=== PATIENT | male | born 1945 | race Caucasian/White ===

== ENCOUNTER 2017-11-17 06:18 | Day surgery (SDC) | payer MEDICARE ==
[~2017-11-17] VITALS: Ht 175.3 cm; Wt 117.5 kg
[2017-11-17] MEDS ORDERED: BACITRACIN OINT 500U/GM, 15 GM ONE (06:49)
[2017-11-17] MEDS ORDERED: EPINEPHRINE TOPICAL SOLN 1 MG/ML, 30ML ONE (06:49)
[2017-11-17] MEDS ORDERED: FLUORESCEIN OPHTHALMIC 1 MG STRIP ONE (06:49)
[2017-11-17] MEDS ORDERED: OXYMETAZOLINE NASAL SPRAY 0.05%, 15ML ONE (06:49)
[2017-11-17] MEDS ORDERED: EPINEPHRINE 1 MG/ML, 1ML ONE (06:50)
[2017-11-17] MEDS ORDERED: LIDOCAINE-MPF 1%, 5ML ONE (06:50)
[2017-11-17] MEDS ORDERED: NO MEDS PER PT (07:13)
[2017-11-17] MEDS ORDERED: LACTATED RINGERS 1,000 ML IV SCH (07:13)
[2017-11-17 07:14] VITALS: BP 172/98
[2017-11-17] MEDS ORDERED: GABAPENTIN 300 MG CAPSULE ONE (07:24)
[2017-11-17] MEDS ORDERED: ACETAMINOPHEN 500 MG TABLET ONE (07:24)
[2017-11-17] MEDS ORDERED: OXYcodone IR 5MG TABLET ONE (07:25)
[2017-11-17] MEDS ORDERED: OXYcodone IR 5MG TABLET PO ONE (07:30)
[2017-11-17] MEDS ORDERED: ACETAMINOPHEN 500 MG TABLET PO ONE (07:30)
[2017-11-17] MEDS ORDERED: GABAPENTIN 300 MG CAPSULE PO ONE (07:30)
[2017-11-17] MEDS ORDERED: MIDAZOLAM 1 MG/ML, 2ML ONE (07:56)
[2017-11-17] MEDS ORDERED: FENTANYL PF 100 MCG/2ML ONE (07:56)
[2017-11-17] MEDS ORDERED: PROPOFOL 10 MG/ML, 20ML ONE ×2 (08:32→08:41)
[2017-11-17] MEDS ORDERED: LIDOCAINE-MPF 2% ,5ML ONE (08:32)
[2017-11-17] MEDS ORDERED: PHENYLEPHRINE 10 MG/ML ONE (08:34)
[2017-11-17] MEDS ORDERED: ROCURONIUM 10MG/ML,5ML ONE (08:41)
[2017-11-17] MEDS ORDERED: hydrALAzine 20 MG/ML, 1ML IV PRN (09:30)
[2017-11-17] MEDS ORDERED: LABETALOL 5MG/ML, 20ML IV PRN (09:30)
[2017-11-17] MEDS ORDERED: MEPERIDINE/PF 25MG/0.5ML IVPush PRN (09:30)
[2017-11-17] MEDS ORDERED: ALBUTEROL SULFATE 2.5 MG/3 ML NPPB PRN (09:30)
[2017-11-17] MEDS ORDERED: PROMETHAZINE 25 MG/ML, 1ML IV PRN (09:30)
[2017-11-17] MEDS ORDERED: morphine SULFATE 10 MG/ML, 1ML IV PRN (09:30)
[2017-11-17] MEDS ORDERED: FENTANYL PF 100 MCG/2ML IV PRN (09:30)
[2017-11-17] MEDS ORDERED: LABETALOL 5MG/ML 40ML VIAL ONE (16:03)
[2017-11-17] MEDS ORDERED: DEXAMETHASONE 4 MG/ML, 1ML ONE (16:03)
[2017-11-17] MEDS ORDERED: CEFAZOLIN 1,000 MG ONE (16:03)
== END 2017-11-17 12:05 | disposition home or self-care (01) ==
LOC: OUT 06:18
PROVIDERS: ATTEND Otolaryngology
DX: J32.2 Chronic ethmoidal sinusitis (principal); J32.0 Chronic maxillary sinusitis; J33.8 Other polyp of sinus; J33.9 Nasal polyp, unspecified; I10 Essential (primary) hypertension; E78.00 Pure hypercholesterolemia, unspecified; Z85.828 Personal history of other malignant neoplasm of skin
CPT/HCPCS: 31253; 31259; 31267; 61782; 88304; 88311; 93005; J0171; J0690; J1100; J2250; J2370; J2704; J3010; J3490; J7120

== ENCOUNTER 2018-09-02 09:02 | Outpatient (CLI) | payer MEDICARE ==
[~2018-09-02 09:02] MED LIST: NO MEDS PER PT
[2018-09-02] MEDS ORDERED: ALLO100T64 PO (09:37)
== END 2018-09-02 23:59 | disposition home or self-care (01) ==
LOC: STAR 09:02
PROVIDERS: ATTEND Orthopaedic Surgery
DX: Z01.818 Encounter for other preprocedural examination (principal); M19.012 Primary osteoarthritis, left shoulder; I45.10 Unspecified right bundle-branch block; I25.2 Old myocardial infarction
CPT/HCPCS: 87081; 93005

== ENCOUNTER 2018-09-09 05:16 | Inpatient (IN) | payer MEDICARE ==
[~2018-09-09] VITALS: Ht 175.3 cm; Wt 120.3 kg
[~2018-09-09 05:16] MED LIST changes: +ALLO100T64 PO
[2018-09-09] MEDS ORDERED: LACTATED RINGERS 1,000 ML IV SCH (06:09)
[2018-09-09] MEDS ORDERED: MIDAZOLAM 1 MG/ML, 2ML ONE (06:14)
[2018-09-09] MEDS ORDERED: FENTANYL PF 100 MCG/2ML ONE ×2 (06:15→09:58)
[2018-09-09] MEDS ORDERED: CLINDAMYCIN 150 MG/ML, 6ML ONE (06:36)
[2018-09-09] MEDS: D5%-0.45% NACL 1,000 ML IV SCH ×2 (06:55→15:46)
[2018-09-09] MEDS ORDERED: morphine SULFATE 10 MG/ML, 1ML IV PRN (07:00)
[2018-09-09] MEDS ORDERED: KETOROLAC 30 MG/1 ML IV SCH ×2 (07:00→11:30)
[2018-09-09] MEDS ORDERED: ACETAMINOPHEN 325 MG TABLET PO PRN ×2 (07:00→07:30)
[2018-09-09] MEDS: HYDROcodone/APAP 5/325 TABLET PO SCH ×3 (07:00→15:47)
[2018-09-09] MEDS ORDERED: ONDANSETRON 2MG/ML, 2ML IV PRN (07:00)
[2018-09-09] MEDS ORDERED: ALLOPURINOL PO SCH (07:00)
[2018-09-09] MEDS ORDERED: MAGNESIUM HYDROXIDE 8%, 30ML UDC PO PRN (07:00)
[2018-09-09] MEDS ORDERED: DIPHENHYDRAMINE 25 MG CAPSULE PO PRN (07:00)
[2018-09-09] MEDS ORDERED: MEPERIDINE/PF 25MG/0.5ML IVPush PRN (07:30)
[2018-09-09] MEDS ORDERED: hydrALAzine 20 MG/ML, 1ML IV PRN (07:30)
[2018-09-09] MEDS ORDERED: OXYcodone 5 MG/5 ML ORAL.SOL UDC PO PRN (07:30)
[2018-09-09] MEDS ORDERED: HYDROmorphone 2 MG/ML, 1ML IVPush PRN (07:30)
[2018-09-09] MEDS ORDERED: ALBUTEROL SULFATE 2.5 MG/3 ML NPPB PRN (07:30)
[2018-09-09] MEDS ORDERED: FENTANYL PF 100 MCG/2ML IV PRN (07:30)
[2018-09-09] MEDS ORDERED: PROMETHAZINE 25 MG/ML, 1ML IV PRN (07:30)
[2018-09-09] MEDS ORDERED: DIAZEPAM 5 MG/ML, 2ML IVPush PRN (07:30)
[2018-09-09] MEDS ORDERED: LABETALOL 5MG/ML, 20ML IV PRN (07:30)
[2018-09-09] MEDS ORDERED: FENTANYL PF 250 MCG/5ML ONE (07:33)
[2018-09-09] MEDS ORDERED: HYDROmorphone 2 MG/ML, 1ML ONE (07:34)
[2018-09-09] MEDS ORDERED: SUGAMMADEX 200 MG/2 ML IVPush ONE (08:29)
[2018-09-09] MEDS ORDERED: DOCUSATE 100 MG CAPSULE PO SCH (09:00)
[2018-09-09] MEDS ORDERED: OXYcodone 5 MG/5 ML ORAL.SOL UDC ONE (09:58)
[2018-09-09] MEDS ORDERED: KETOROLAC 30 MG/1 ML ONE (10:09)
[2018-09-09] MEDS ORDERED: SUCCINYLCHOLINE 20 MG/ML, 10ML ONE (11:03)
[2018-09-09] MEDS ORDERED: PROPOFOL 10 MG/ML, 20ML ONE (11:03)
[2018-09-09] MEDS ORDERED: ROCURONIUM 10MG/ML,5ML ONE (11:03)
[2018-09-09] MEDS ORDERED: LABETALOL 20 MG/4 ML ONE (11:03)
[2018-09-09] MEDS ORDERED: DEXAMETHASONE 4 MG/ML, 1ML ONE (11:03)
[2018-09-09 13:01] VITALS: BP 110/68
[2018-09-09] MEDS ORDERED: CEFAZOLIN PMX 2GM/50ML 50 ML IVPB SCH (15:00)
[2018-09-09 16:20] VITALS: BP 109/69
== END 2018-09-09 17:04 | disposition home or self-care (01) | DRG 483 ==
LOC: ORIP 05:16 → 4NOR 10:57 → DCLOUNGE 16:57
PROVIDERS: ADMIT Orthopaedic Surgery; ATTEND Orthopaedic Surgery
PROC: 0LS40ZZ Reposition Left Upper Arm Tendon, Open Approach (ICD-10-PCS; 2018-09-09)
PROC: 3E0T3BZ Introduction of Anesthetic Agent into Peripheral Nerves and Plexi, Percutaneous Approach (ICD-10-PCS; 2018-09-09)
PROC: 0RRK0JZ Replacement of Left Shoulder Joint with Synthetic Substitute, Open Approach (ICD-10-PCS; principal; 2018-09-09 07:00)
DX: M19.012 Primary osteoarthritis, left shoulder (principal); M75.22 Bicipital tendinitis, left shoulder; I10 Essential (primary) hypertension; M75.102 Unspecified rotator cuff tear or rupture of left shoulder, not specified as traumatic; E66.01 Morbid (severe) obesity due to excess calories; Z68.39 Body mass index [BMI] 39.0-39.9, adult; Z85.828 Personal history of other malignant neoplasm of skin
CPT/HCPCS: C1713; C1776; J0690; J1100; J1170; J1885; J2250; J2704; J3010; J0330; J3490; J7120